=== PATIENT | female | born 1960 | race American Indian/Alaskan Native ===

== ENCOUNTER 2021-10-11 05:21 | Emergency (ER) | payer MEDICAID ==
[2021-10-11] MEDS ORDERED: KETOROLAC 60 MG/2 ML INJ IM ONE (06:10)
[2021-10-11] MEDS ORDERED: oxyCODONE /ACETAMINOPHEN 5-325MG TAB PO ONE (06:10)
--- NOTE | 2021-10-11 06:35 | Emergency Department Report ---
ED Extremity Problem HPI - General Chief complaint: Pain General Stated complaint: SWOLLEN RIGHT ANKLE Time Seen by Provider: 10/11/21 06:05 Source: patient Mode of arrival: Ambulatory Limitations: No Limitations - History of Present Illness Initial comments: 61-year-old female with a past medical history Graves' disease presents to the hospital complaining of nontraumatic right ankle pain. Patient states she went to bed without any issues and the pain woke her up from sleeping. She complains of severe 10/10 throbbing pain to her ankle radiating to her foot and distal leg. She feels like it is swollen. She denies fever, trauma, or diagnosis of gout. She has a history of "fluid in her knee" in the past Severity scale (0 -10): 7 - Related Data Previous Rx's Medication Instructions Recorded Last Taken Type Colchicine [Colcrys] 0.6 mg PO ONCE #1 tablet 10/11/21 Unknown Rx HYDROcodone/APAP 5-325 [[place] 1 each PO Q6HR PRN #15 tablet 10/11/21 Unknown Rx 5/325] Indomethacin 50 mg PO Q8H #20 cap 10/11/21 Unknown Rx Allergies Allergy/AdvReac Type Severity Reaction Status Date / Time No Known Allergies Allergy Verified 10/11/21 05:34 ED Review of Systems ROS: Stated complaint: SWOLLEN RIGHT ANKLE Other details as noted in HPI Comment: All other systems reviewed and negative ED Past Medical Hx - Past Medical History Previous Medical History?: Yes Additional medical history: Graves Disease - Surgical History Past Surgical History?: No - Social History Smoking Status: Never Smoker Substance Use Type: None - Medications Home Medications: Home Medications Medication Instructions Recorded Confirmed Last Taken Type Colchicine [Colcrys] 0.6 mg PO ONCE #1 tablet 10/11/21 Unknown Rx HYDROcodone/APAP 5-325 [[place] 1 each PO Q6HR PRN #15 tablet 10/11/21 Unknown Rx 5/325] Indomethacin 50 mg PO Q8H #20 cap 10/11/21 Unknown Rx ED Physical Exam - General Limitations: No Limitations - Other Other exam information: General: Moderate distress secondary to Head: Atraumatic Eyes: normal appearance ENT: Moist mucous membranes Neck: Normal appearance, no midline tenderness Chest: Clear to auscultation bilaterally CV: Regular rate and rhythm Abdomen: Soft, normal bowel sounds, nontender, nondistended, no rebound or guarding Back: Normal inspection Extremity: Mild right lateral ankle swelling below the malleolus. Mild warmth to this area without erythema or skin changes. Diffuse pain bilateral ankle and foot tenderness greatest at the right lateral ankle. 2+ DP pulse. Limited plantar and dorsiflexion of the ankle secondary to pain Neuro: Alert O x 3, no facial asymmetry, speech clear, no gross motor sensory deficit Psych: Appropriate behavior Skin: No rash, no redness, erythema, ED Course Vital Signs 10/11/21 05:31 Temperature 97.6 F Pulse Rate 90 Respiratory 18 Rate Blood Pressure 128/87 O2 Sat by Pulse 99 Oximetry ED Medical Decision Making - Radiology Data Radiology results: report reviewed RIGHT ANKLE 3 VIEWS INDICATION / CLINICAL INFORMATION: Lateral right ankle pain. COMPARISON: None available. FINDINGS: BONES and JOINT(S): No acute fracture or subluxation. No significant arthritis. SOFT TISSUES: No significant abnormality. ADDITIONAL FINDINGS: None. IMPRESSION: 1. No acute findings. - Medical Decision Making 61-year-old female presents with new onset of nontraumatic right lateral ankle pain with mild warmth and soft tissue swelling below the lateral malleolus. X- ray does not reveal any acute findings. Patient does not have systemic symptoms or skin changes to suggest cellulitis or septic arthritis. Patient will be treated for gout, provide anti-inflammatories, pain medication, stirrup splint, and crutches. Outpatient orthopedic evaluation for further work-up will be recommended. Critical Care Time: No Critical care attestation.: If time is entered above; I have spent that time in minutes in the direct care of this critically ill patient, excluding procedure time. ED Disposition Clinical Impression: Gout of ankle Qualifiers: Chronicity: acute Laterality: right Disposition: 01 HOME / SELF CARE / HOMELESS Is pt being admited?: No Does the pt Need Aspirin: No Condition: Stable Instructions: Low-Purine Eating Plan, Ankle Pain Additional Instructions: Take the medication as prescribed. Follow-up with your doctor or doctor/clinic provided. Return if symptoms worsen as indicated by your discharge instructions. Prescriptions: Colchicine [Colcrys] 0.6 mg PO ONCE #1 tablet Indomethacin 50 mg PO Q8H #20 cap HYDROcodone/APAP 5-325 [[place] 5/325] 1 each PO Q6HR PRN #15 tablet PRN Reason: Pain Referrals: PRIMARY CARE, [Primary Care Provider] - 3-5 Days MENDEZ SAMUEL MD [Staff Physician] - 3-5 Days (Orthopedic doctor) ERINN HERNANDEZ MD [Staff Physician] - 3-5 Days (Primary care doctor) [facility] [Provider Group] - 3-5 Days (Primary care clinic) Time of Disposition: 07:52
--- NOTE | 2021-10-11 06:39 | XRay Report ---
RIGHT ANKLE 3 VIEWS INDICATION / CLINICAL INFORMATION: Lateral right ankle pain. COMPARISON: None available. FINDINGS: BONES and JOINT(S): No acute fracture or subluxation. No significant arthritis. SOFT TISSUES: No significant abnormality. ADDITIONAL FINDINGS: None. IMPRESSION: 1. No acute findings. Signer Name: Maikel Arias MD Signed: 10/11/2021 6:35 AM Workstation Name: [id number] [id number]
[2021-10-11] MEDS ORDERED: COLCHICINE 0.6 MG TAB PO ONE (07:45)
[2021-10-11 07:47] VITALS: BP 143/95
== END 2021-10-11 08:52 | disposition home or self-care (01) ==
LOC: ED 05:21
DX: M10.071 Idiopathic gout, right ankle and foot (principal)
CPT/HCPCS: 29515; 73610; 96372; 99283; J1885